=== PATIENT | male | born 1955 | race Caucasian/White ===

== ENCOUNTER → 2018-08-27 | Outpatient (CLI) | payer MEDICAID ==
[~2018-08-27] MED LIST: IOPAMIDOL (ISOVUE-300) 100 ML BTL ONE
== END ==
LOC: FIMAGING 15:38
PROVIDERS: ATTEND Surgery
DX: S80.921A Unspecified superficial injury of right lower leg, initial encounter (principal); W45.8XXA Other foreign body or object entering through skin, initial encounter; Y93.15 Activity, underwater diving and snorkeling
CPT/HCPCS: Q9967

== ENCOUNTER 2018-09-30 10:18 | Day surgery (SDC) | payer MEDICAID ==
[2018-09-30] MEDS ORDERED: ceFAZolin 2 GM/DEXTROSE 100 ML IV ONE (10:34)
[2018-09-30] MEDS ORDERED: LR 1,000 ML IV ONE (10:46)
[2018-09-30] MEDS ORDERED: BUPIVACAINE 0.5% 30 ML SDV ONE (10:58)
--- NOTE | 2018-09-30 11:18 | PDANEPAE ---
ANE Past Medical History - Cardiovascular History Hx Hypertension: No Hx Arrhythmias: No Hx Chest Pain: No Hx Coronary Artery / Peripheral Vascular Disease: No Hx CHF / Valvular Disease: No Hx Palpitations: No Cardiovascular History Comment: RARE OCCAS SKIPPED BEAT - Pulmonary History Hx COPD: No Hx Asthma/Reactive Airway Disease: No Hx Recent Upper Respiratory Infection: No Hx Oxygen in Use at Home: No Hx Sleep Apnea: No Sleep Apnea Screening Result - Last Documented: Negative - Neurologic History Hx Cerebrovascular Accident: No Hx Seizures: No Hx Dementia: No Neurologic History Comment: NONE SINCE CHILDHOOD - Endocrine History Hx Diabetes: No - Renal History Hx Renal Disorders: No - Liver History Hx Hepatic Disorders: No - Neurological & Psychiatric Hx Hx Neurological and Psychiatric Disorders: No - Cancer History Hx Cancer: No Cancer History Comment: MELANOMA - Congenital Disorder History Hx Congenital Disorders: No - GI History Hx Gastrointestinal Disorders: No - Other Health History Other Health History: NEG - Chronic Pain History Chronic Pain: No - Surgical History Prior Surgeries: HERNIA REPAIR. 2005 MELANOMA. TONSILLECTOMY ANE Review of Systems Review of Systems: - Exercise capacity METS (RN): 5 METS ANE Patient History - Allergies Allergies/Adverse Reactions: No Known Allergies Allergy (Unverified 09/24/18 07:16) - Home Medications Home Medications: Aspirin 09/24/18 [Last Taken 09/18/18] Sildenafil Citrate 09/24/18 [Last Taken 09/09/18] - NPO status NPO Since - Liquids (Date): 09/30/18 NPO Since - Liquids (Time): 08:45 NPO Since - Solids (Date): 09/29/18 NPO Since - Solids (Time): 20:30 - Smoking Hx Smoking Status: Former smoker - Family Anes Hx Family Hx Anesthesia Complications: NEG ANE Labs/Vital Signs - Vital Signs Vital Signs: reviewed preoperatively; see RN documention for details Blood Pressure: 129/89 Height: 180.34 cm Weight: 65.771 kg ANE Physical Exam - Airway Neck exam: FROM Mallampati Score: Class 3 Mouth exam: normal dental/mouth exam - Pulmonary Pulmonary: clear to auscultation - Cardiovascular Cardiovascular: regular rate and rhythym - ASA Status ASA Status: I ANE Anesthesia Plan Anesthesia Plan: GA w LMA
[2018-09-30] MEDS ORDERED: MIDAZOLAM 2 MG/2 ML VIAL IVP ONE (11:20)
[2018-09-30] MEDS ORDERED: fentaNYL 100 MCG/2 ML INJ ONE (11:39)
[2018-09-30] MEDS ORDERED: PROPOFOL 200 MG/20 ML VIAL ONE (11:40)
--- NOTE | 2018-09-30 11:43 | PDHPUP ---
History & Physical Update H&P update statement: This history and physical update is based on an assessment of the patient which was completed after admission or registration (within 24 hours), but prior to the surgery/procedure. H&P update: H&P reviewed & patient examined, no change in patient's condition since H&P completed
[2018-09-30] MEDS ORDERED: DEXAMETHASONE 4 MG/ML VIAL ONE (12:00)
[2018-09-30] MEDS ORDERED: ONDANSETRON 4 MG/2 ML VIAL ONE (12:00)
[2018-09-30] MEDS ORDERED: KETOROLAC 30 MG/1 ML SDV ONE (12:01)
--- NOTE | 2018-09-30 13:05 | POSTOPPROG ---
Post Op Note Date of Operation: 09/30/18 Surgeon: Jami Warren Anesthesiologist: roney Anesthesia: GET(General Endotracheal), LMA Pre-op Diagnosis: RLE traumatic wound Post-op Diagnosis: same Indication: 63 yo with traumatic wound rle Procedure: Excisional debridement RLE 3x2x1 cm Findings: necrotic fat Inf/Abcess present in the surg proc area at time of surgery?: No EBL: Minimal Specimen(s): fat for culture
[2018-09-30 13:43] VITALS: BP 121/82
--- NOTE | 2018-10-01 08:08 | POSTANESTH ---
Post Anesthetic Evaluation Cardiovascular Status: Normal, Stable Respiratory Status: Normal, Stable Level of Consciousness/Mental Status: Can Participate in Eval Pain Control: Adequate, Prn Tx Ordered Nausea/Vomiting Control: Adequate, Prn Tx Ordered Complications Possibly Related to Anesthesia: None Noted
== END 2018-09-30 13:35 | disposition home or self-care (01) ==
LOC: FSGY 10:18
PROVIDERS: ATTEND Surgery
PROC: 0JBN0ZZ Excision of Right Lower Leg Subcutaneous Tissue and Fascia, Open Approach (ICD-10-PCS; principal; 2018-09-30 11:45)
DX: L98.499 Non-pressure chronic ulcer of skin of other sites with unspecified severity (principal); S80.921S Unspecified superficial injury of right lower leg, sequela; W45.8XXS Other foreign body or object entering through skin, sequela; Y93.15 Activity, underwater diving and snorkeling
CPT/HCPCS: J0690; J1100; J1885; J2250; J2405; J2704; J3010